=== PATIENT | female | born 2005 | race Two or more races ===

== ENCOUNTER 2025-02-03 20:25 | Emergency (ER) | payer OTHER ==
[~2025-02-03] VITALS: Ht 160 cm; Wt 68.0 kg
[2025-02-03 20:47] VITALS: BP 123/80; O2SAT 100
[2025-02-03 21:37] LABS: BASO % 0.2 % (0.1-1.2); EOS # 0.04 (0.04-0.54); EOS % 0.3 % (0.7-7.0); HEMATOCRIT 34.6 % (34.1-44.9); HEMOGLOBIN 11.7 g/dL (11.2-15.7); LYMPH # 1.96 (1.18-3.74); LYMPH % 16.2 % (19.3-53.1); MONO # 0.63 (0.24-0.82); MONO % 5.2 % (4.7-12.5); NEUT # 9.38 (1.56-6.13); NEUT % 77.8 % (34.0-71.1); PLATELET COUNT 255 K/uL (163-369); RED BLOOD COUNT 4.18 M/uL (3.93-5.22); RED CELL DISTRIBUTION WIDTH 12.5 % (11.6-14.4)
[2025-02-03 22:10] LABS: BILIRUBIN TOTAL 0.29 mg/dL (0.3-1.2); CREATININE SERUM 0.81 mg/dL (0.55-1.02); GFR 90.14; GLOBULINA 3.4 G/DL (2.4-3.5); POTASSIUM 4.13 mEq/L (3.5-5.1); TOTAL PROTEIN 7.4 gm/dL (6.4-8.2)
[2025-02-04 00:16] LABS: COCAINE NEGATIVE (NEGATIVE); METHADONE NEGATIVE (NEGATIVE); OPIATES NEGATIVE (NEGATIVE); THC ( Cannabinoids) POSITIVE (NEGATIVE)
== END 2025-02-03 22:52 | disposition home or self-care (01) ==
LOC: EMR PED 20:25
DX: R42 Dizziness and giddiness (principal); Z87.898 Personal history of other specified conditions